=== PATIENT | male | born 1940 | race Caucasian/White ===

== ENCOUNTER 2017-01-21 05:34 | Outpatient (CLI) | payer MEDICARE ==
[~2017-01-21] VITALS: Ht 182.9 cm; Wt 102.1 kg
[~2017-01-21 05:34] MED LIST: ASPI325T32 PO; ATRV10T PO; CHOL2000 PO; HYDR1TAB PO; HYDROCHLOROTHIAZIDE PO; IBUP-30 PO; MTP25TSR PO; MULT-963 PO; OMG1KC PO; TERA5CAP10 PO; TRIA1TAB3 PO; TRIAMTERENE PO
[2017-01-21] MEDS ORDERED: AMLO10TA2 PO (16:21)
[2017-01-21] MEDS ORDERED: ATOR20TA66 PO (16:21)
[2017-01-21] MEDS ORDERED: LISI40TA PO (16:21)
[2017-01-21] MEDS ORDERED: CLON0.1T PO (16:21)
[2017-01-23] MEDS ORDERED: OMEP20CA12 PO (10:23)
== END 2017-01-21 16:24 ==
LOC: PREOP 05:34
PROVIDERS: ATTEND Internal Medicine
DX: Z01.818 Encounter for other preprocedural examination (principal); K92.1 Melena; D50.0 Iron deficiency anemia secondary to blood loss (chronic)

== ENCOUNTER 2017-01-23 07:32 | Day surgery (SDC) | payer MEDICARE ==
--- NOTE | 2017-01-19 21:46 | HISTORY AND PHYSICAL ---
DATE OF SERVICE: 01/23/2017 HISTORY OF PRESENT ILLNESS: The patient is a 76-year-old white male referred by Dr. Zee for diagnostic panendoscopy. He reports, 10 days ago, noting the onset of several large black stools, slightly loose and tarry. He had no diarrhea with this but had daily melena for 3 days with some mild lethargy. He denied any associated abdominal pain, bright red blood per rectum, abdominal distention or weight loss. He underwent colonoscopy last in 2007 at which time no symptoms were noted. He has no known past history of peptic ulcer disease. He was taking one-half of a 325 mg aspirin tablet daily for primary prevention. He had also taken 3 ibuprofen the day prior to the onset of his melena. He has not been taking any nonsteroid medication since. He reports that his appetite has been fair and that he has always had difficulty with weight loss. PAST MEDICAL HISTORY: Significant for hypertension and hyperlipidemia. MEDICATIONS ON ADMISSION: Include lisinopril 20 mg daily, atorvastatin 20 mg daily, hydrocodone 5/325 p.r.n., triamterene/hydrochlorothiazide 1 daily, fish oil 1200 mg capsules 2 daily, aspirin (one-half) 325 mg tablet up until the onset of melena, multivitamin and 2000 units of vitamin D daily. FAMILY HISTORY: Father had history of kidney disease, non-GI tract cancer and hyperlipidemia. Mother also has history of cancer (unknown primary) and dementia. PAST SURGICAL HISTORY: Significant for open heart surgery in 2011. SOCIAL HISTORY: The patient denies any smoking history with only occasional social alcohol intake. He is retired. PHYSICAL EXAMINATION: GENERAL APPEARANCE: Revealed a slightly overweight, white male in no acute distress. VITAL SIGNS: Blood pressure was 110/43 with a heart rate of 80 and regular. SKIN: Revealed no evident of pallor. HEENT: Oral cavity is clear. NECK: Revealed no JVD, adenopathy or bruits. CHEST: Clear. CARDIOVASCULAR: Revealed a regular rate and rhythm without murmur, S3 or S4. CHEST WALL: Midline sternotomy scar is noted. ABDOMEN: Soft, supple, without mass, organomegaly or tenderness. EXTREMITIES: Revealed no cyanosis, clubbing or edema. ASSESSMENT: The patient was set up for diagnostic panendoscopy due to history of melena and associated mild anemia. CBC revealed hemoglobin 1 week ago of 13.4 with a normal MCV. RDW was slightly elevated at 15.6. White count was elevated at 13.8 thousand with left shift and platelet count was 153,000. Preop instructions with split dose Colyte were given. All questions were answered. He was offered an appointment for colonoscopy in 48 hours but he stated that he was not going to be able to make that date and scheduled for the following week on 01/23/2017. Thank you for the referral of this pleasant gentleman. Job ID: [id number] DocumentID: [id number] Dictated Date: 01/14/2017 21:02:38 Tool Machine Set Up Operator Date: 01/14/2017 22:24:06 Dictated By: SHARON SIDHU MD
[~2017-01-23] VITALS: Ht 182.9 cm; Wt 102.1 kg
[~2017-01-23 07:32] MED LIST changes: +AMLO10TA2 PO; +ATOR20TA66 PO; +CLON0.1T PO; +LISI40TA PO
[2017-01-23] MEDS ORDERED: 1/2 NS IV SOLUTION 1,000 ML IV STA (07:42)
[2017-01-23] MEDS ORDERED: NALOXONE 0.4 MG/ML 1 ML (NARCAN) VIAL IVP PRN (07:45)
[2017-01-23] MEDS ORDERED: LIDOCAINE JELLY 2% (XYLOCAINE) 5 ML TUBE MM PRN (07:45)
[2017-01-23] MEDS ORDERED: HURRICAINE EXT TUBE (BENZOCAINE) XX PRN (07:45)
[2017-01-23] MEDS ORDERED: FLUMAZENIL (ROMAZICON) 0.1 MG/ML 5 ML VIAL INJ PRN (07:45)
--- NOTE | 2017-01-23 07:51 | Pre-Op Note & Conscious Sedat ---
Pre-Operative Progress Note H&P Reviewed The H&P was reviewed, patient examined and no changes noted. Date H&P Reviewed: January 23, 2017 Time H&P Reviewed: 07:50 Conscious Sedation Pre-Proced ASA Class: 2 Airway Mallampati Classification: ([place] appropriate class) I. II. III, IV Lungs Heart ASA score ASA 1: a normal healthy patient ASA 2: a patient with a mild systemic disease (mid diabetes, controlled hypertension, obesity ASA 3: a patient with a severe systemic disease that limits activity (angina , COPD, prior Myocardial infarction) ASA 4: a patient with an incapacitating disease that is a constant threat to life (CHF, renal failure) ASA 5: a moribund patient not expected to survive 24 hrs. (ruptured aneurysm) ASA 6: a declared brain patient whose organs are being harvested. For emergent operations, add the letter E after the classification Grade 3 Sedation Plan: Analgesia, Amnesia, Plan communicated to team members, Discussed options with patient/fam, Discussed risks with patient/fam Note The patient is an appropriate candidate to undergo the planned procedure, sedation, and anesthesia. The patient immediately re-assessed prior to indication. SHARON SIDHU MD January 23, 2017 07:51
[2017-01-23 07:58] VITALS: BP 142/80
[2017-01-23] MEDS ORDERED: fentaNYL INJECTION 100 MCG/2 ML AMP ONE ×2 (08:28→09:17)
[2017-01-23] MEDS ORDERED: HURRICAINE EXT TUBE (BENZOCAINE) ONE (08:29)
[2017-01-23] MEDS ORDERED: LIDOCAINE JELLY 2% (XYLOCAINE) 5 ML TUBE ONE (08:29)
[2017-01-23] MEDS ORDERED: MIDAZOLAM 2 MG/2 ML (VERSED) VIAL ONE ×3 (08:29)
[2017-01-23] MEDS: fentaNYL INJECTION 100 MCG/2 ML AMP IVP PRN ×2 (08:32→08:35)
[2017-01-23] MEDS: MIDAZOLAM 2 MG/2 ML (VERSED) VIAL IVP PRN ×3 (08:34→09:18)
[2017-01-23 09:50] VITALS: BP 90/56
[2017-01-23] MEDS ORDERED: OMEP20CA12 PO (10:23)
[2017-01-23 10:25] VITALS: BP 125/78
[2017-01-23 10:34] VITALS: BP 125/78
--- NOTE | 2017-01-23 14:55 | OPERATIVE REPORT ---
DATE OF SERVICE: [facility] SUMMARY INDICATION FOR PROCEDURE: [facility] endoscopy is performed for evaluation of GI bleed with secondary anemia. The patient was placed in the lithotomy position. Prior to doing colonoscopy, digital rectal evaluation was performed. There was no evidence for internal rectal hemorrhoids on digital evaluation. The patient does have a prominent perianal skin fold . Anal sphincter tone was normal. The perianal reflex was intact. The prostate is either quite small or absent. No nodules are noted. No other abnormalities were noted on digital inspection of anal canal or distal rectal vault. The colonoscope was then inserted into the rectum and under direct visualization advanced to the cecum. The cecum was identified by identification of the ileocecal valve and cecal strap. FINDINGS: Several small sigmoid diverticulum were present with no evidence for diverticulitis. The descending colon, transverse colon, ascending colon and cecum were unremarkable. ASSESSMENT: Two small sigmoid diverticulum were present with an otherwise normal colonoscopy to the cecum. The patient either has a very small or congenitally absent prostate on digital inspection as he reports no past history of surgery or radiation therapy. We then proceeded with an EGD. The endoscope was inserted in the oral cavity and under direct visualization the esophagus was intubated. The instrument was passed down the esophagus, through the stomach to the second portion of the duodenum. Careful inspection was made as the endoscope was withdrawn. The patient tolerated the procedure well. FINDINGS: Proximal and mid esophagus were unremarkable. One benign appearing ulcer was noted at the Z-line with erythema and another shallow erosion was present compatible with LA Grade B erosive esophagitis. There was no visible evidence to suggest underlying malignancy or Chew's change. The biopsy was obtained from the ulcer and submitted for histopathology. A small sliding hiatal hernia was present. The cardia and fundus of the stomach are unremarkable. Antral erythema was present without evidence for erosion or ulceration. A biopsy was obtained and submitted for Helicobacter. The pylorus, pyloric channel, duodenal bulb and second portion of the duodenum were unremarkable. ASSESSMENT; LA Grade B erosive esophagitis was present. Biopsy was obtained and submitted for histopathology. Suspect that this is the likely source of this patient 's melena. He does not report heartburn compatible with an insensate esophagus or nighttime symptoms that he sleeps through. We did call out 30 days worth of omeprazole 20 mg to take at least a 1/2 hour before breakfast and he was advised to stay off aspirin. Considering this is for primary prevention, risks may outweigh future benefits of aspirin therapy. Considering that he does not have reflux symptoms and has had a significant GI bleed, would consider indefinite use of PPI therapy, especially if low dose aspirin is going to be resumed in the future. He was advised to continue to avoid nonsteroidal medication. I thank you for the referral of this pleasant gentleman. Job ID: [id number] DocumentID: [id number] Dictated Date: 01/23/2017 11:33:32 Job Recruiter Date: 01/23/2017 14:55:08 Dictated By: SHARON SIDHU MD MTDD
== END 2017-01-23 10:45 | disposition home or self-care (01) ==
LOC: ENDO 07:32
PROVIDERS: ATTEND Internal Medicine
DX: K92.1 Melena (principal); D64.9 Anemia, unspecified; K57.30 Diverticulosis of large intestine without perforation or abscess without bleeding; K22.10 Ulcer of esophagus without bleeding; K44.9 Diaphragmatic hernia without obstruction or gangrene; I10 Essential (primary) hypertension; E78.5 Hyperlipidemia, unspecified; Z79.899 Other long term (current) drug therapy

== ENCOUNTER → 2017-05-14 | Outpatient (CLI) | payer MEDICARE ==
[~2017-05-14] MED LIST changes: +OMEP20CA12 PO
--- NOTE | 2017-05-14 12:26 | Diagnostic Imaging Report ---
INDICATION: Left hip pain. COMPARISON: None. FINDINGS: 2 dedicated radiographic views of the left hip were obtained. There is no fracture, dislocation, bone destruction, or radiopaque foreign body. The visualized pelvic osseous structures and the SI joints demonstrate no acute fracture or dislocation. There is no bone destruction or radiopaque foreign body. The surrounding soft tissue structures are unremarkable. IMPRESSION: 1. Unremarkable radiographic exam of the left hip. Dictated by: Dictated on workstation # [id number]
--- NOTE | 2017-05-14 12:33 | Diagnostic Imaging Report ---
INDICATION: Left knee pain. COMPARISON: None FINDINGS: 3 radiographic views of the left knee were obtained. There is no evidence of acute fracture or dislocation. Osseous structures are intact. There are osteoarthritic changes consisting primarily of the medial tibiofemoral compartment joint space narrowing with sclerotic change of the adjacent articulating surfaces. Otherwise, joint spaces are preserved. There is no large joint effusion. No unexpected radiopaque foreign bodies are seen. IMPRESSION: 1. No radiographic evidence of acute fracture or dislocation of left knee. 2. 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 Dictated by: Dictated on workstation # [id number]
== END ==
LOC: RAD 11:31
PROVIDERS: ATTEND Family Medicine
DX: M17.12 Unilateral primary osteoarthritis, left knee (principal); M25.552 Pain in left hip
CPT/HCPCS: 73502; 73562

== ENCOUNTER → 2018-07-06 | Outpatient (CLI) | payer MEDICARE ==
[~2018-07-06] MED LIST changes: -AMLO10TA2 PO; +AMLO10TA6 PO
[2018-07-06 08:28] LABS: CREATININE SERUM 1.66 MG/DL (0.60-1.30)
== END ==
LOC: LAB 08:00
PROVIDERS: ATTEND Internal Medicine Cardiovascular Disease
DX: I65.23 Occlusion and stenosis of bilateral carotid arteries (principal)
CPT/HCPCS: 36415; 82565; 84520

== ENCOUNTER → 2018-07-09 | Outpatient (CLI) | payer MEDICARE ==
[~2018-07-09] MED LIST changes: +IOHEXOL 350 MG/ML 100 ML (OMNIPAQUE 350) VIAL IV ONE; +NS 250 ML (IVPB) BAG IV ONE; +RECEIVED CONTRAST (Hold Metformin) IV SCH
[2018-07-09 08:56] LABS: CREATININE SERUM 1.45 MG/DL (0.60-1.30)
--- NOTE | 2018-07-09 11:39 | Diagnostic Imaging Report ---
INDICATION: Carotid artery stenosis. COMPARISON: 04/23/2016 TECHNIQUE: Routine postcontrast CTA of the neck was performed. Contrast was administered intravenously. Multiplanar and 3-D reformats were also created and reviewed. FINDINGS: Included portions of the aortic arch show mild calcified aortic atherosclerosis. There is mild calcified atherosclerosis at the origin of the right brachiocephalic and common carotid arteries. The origins of the major arch vessels are otherwise widely patent. Bilateral common carotid arteries are mildly tortuous, but are patent as well. There is no focal hemodynamically significant stenosis of the common carotid arteries on either side. There is mild calcified atherosclerosis of the left carotid bulb and origin of the left internal carotid artery. There is however no focal hemodynamically significant stenosis of the left internal carotid artery. There is no evidence of dissection. On the right however, there is large eccentric calcified plaque at the origin of the right internal carotid artery. This results in approximate 65% stenosis of the proximal right internal carotid artery. Within the posterior circulation, the left vertebral artery appears to be slightly dominant. There is moderate image degradation of the proximal portions of the bilateral vertebral arteries secondary to beam hardening artifact. There are bulky calcifications of the origins of bilateral vertebral arteries, but otherwise, the vertebral arteries are widely patent without evidence of focal stenosis. Bony structures show age-related degenerative changes. No acute osseous abnormalities are seen. Surrounding pre-and paravertebral soft tissue structures are unremarkable as well. Included portions of the lung apices are within normal limits. Included portions of posterior fossa unremarkable as well. 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 Please note, this portion of the intracranial circulation is not occluded on today's exam. IMPRESSION: 1. 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 2. Otherwise, mild scattered calcified atherosclerotic disease. 3. Patient's known intracranial arterial aneurysm is not included on today's [id number]. Dictated by: Dictated on workstation # [id number]
== END ==
LOC: RAD 07-06 07:56
PROVIDERS: ATTEND Internal Medicine Cardiovascular Disease
DX: I65.23 Occlusion and stenosis of bilateral carotid arteries (principal)
CPT/HCPCS: 36415; 70498; 82565; 84520

== ENCOUNTER → 2020-07-06 | Outpatient (CLI) | payer MEDICARE ==
[~2020-07-06] MED LIST changes: +AMLO-251 PO; -AMLO10TA6 PO; +CLN.1T PO; -CLON0.1T PO; -IOHEXOL 350 MG/ML 100 ML (OMNIPAQUE 350) VIAL IV ONE; -NS 250 ML (IVPB) BAG IV ONE; -OMEP20CA12 PO; +OMEP20CA18 PO; -RECEIVED CONTRAST (Hold Metformin) IV SCH
== END ==
LOC: CARD 10:56
PROVIDERS: ATTEND Physician Assistant
DX: I51.7 Cardiomegaly (principal); I25.10 Atherosclerotic heart disease of native coronary artery without angina pectoris; I65.29 Occlusion and stenosis of unspecified carotid artery; E78.5 Hyperlipidemia, unspecified
CPT/HCPCS: 93306

== ENCOUNTER → 2020-07-16 | Outpatient (CLI) | payer MEDICARE ==
[~2020-07-16] VITALS: Ht 182 cm; Wt 104.0 kg
[~2020-07-16] MED LIST changes: +REGADENOSON 0.4 MG/5 ML SYR (LEXISCAN) IV ONE
[2020-07-16] MEDS: CATHETER FLUSH 10 ML SYR IV PRN ×2 (08:20→09:10)
[2020-07-16 09:09] VITALS: BP 120/71
--- NOTE | 2020-07-17 08:28 | Cardiology Stress Test Report ---
Stress Test Report Date of Procedure/Referring: Date of Procedure: Jul 17, 2020 PCP Lexie Ireland Admitting Physician Carl Da Silva MD Indications: Coronary artery disease Baseline Heart Rate: 75 Baseline Blood Pressure: Blood Pressure Systolic: 120 Blood Pressure Diastolic: 71 Baseline Vitals Vital Signs Date Time Temp Pulse Resp B/P (MAP) Pulse Ox O2 Delivery O2 Flow Rate FiO2 07/16/20 09:09 78 14 120/71 (87) 97 Room Air Baseline EKG: Baseline EKG: normal sinus rhythm Summary After explaining the procedure to the patient, he signed a consent and then brought to the stress nuclear laboratory. Patient received 0.4 mg Lexiscan for stress test, ECG, heart rate and blood pressure were monitored continuously. Resting and stress dose of radio tracer were injected, imaging was acquired and reviewed in short axis, horizontal long axis and vertical long axis views. TID: 1.13 SSS: 3 SDS: 2 EF: 47 1. Patient tolerated Lexiscan well 2. Mild decreased uptake involving the anterior wall and anterior apex with mild reversibility 3. Normal left ventricular size, EF 47 percent SHERI HERNDON MD Jul 17, 2020 08:28
== END ==
LOC: CARD 08:30
PROVIDERS: ATTEND Physician Assistant
DX: I25.10 Atherosclerotic heart disease of native coronary artery without angina pectoris (principal); I65.23 Occlusion and stenosis of bilateral carotid arteries; E78.2 Mixed hyperlipidemia
CPT/HCPCS: 78452; 93017; A9502

== ENCOUNTER → 2022-01-08 | Outpatient (CLI) | payer MEDICARE ==
[~2022-01-08] MED LIST changes: -LISI40TA PO; +LISI40TA9 PO; -REGADENOSON 0.4 MG/5 ML SYR (LEXISCAN) IV ONE
== END ==
LOC: CARD 15:00
PROVIDERS: ATTEND Internal Medicine Cardiovascular Disease
DX: I35.1 Nonrheumatic aortic (valve) insufficiency (principal); I10 Essential (primary) hypertension
CPT/HCPCS: 93306

== ENCOUNTER → 2022-02-10 | Outpatient (CLI) | payer MEDICARE ==
[~2022-02-10] MED LIST changes: +CATHETER FLUSH 10 ML SYR IVP PRN
[2022-02-10 09:43] VITALS: BP 130/72
--- NOTE | 2022-02-10 11:42 | Cardiology Stress Test Report ---
Stress Test Report Date of Procedure/Referring: Date of Procedure: Feb 10, 2022 PCP Carl Ardon MD Admitting Physician Admitting Physician: Attending Physician: Sindhu Serrano MD Indications: HTN Baseline Heart Rate: 73 Baseline Blood Pressure: Blood Pressure Systolic: 130 Blood Pressure Diastolic: 72 Vital Signs Date Time Temp Pulse Resp B/P (MAP) Pulse Ox O2 Delivery O2 Flow Rate FiO2 02/10/22 09:43 73 130/72 (91) Baseline Vital Signs Vital Signs Date Time Temp Pulse Resp B/P (MAP) Pulse Ox O2 Delivery O2 Flow Rate FiO2 02/10/22 09:43 73 130/72 (91) Baseline EKG: Baseline EKG: NSR Summary: After explaining the procedure and details to the patient, he signed the consent and was brought to the stress nuclear laboratory. Patient exercised on standard Matthew protocol, EKG, heart rate and blood pressure were monitored continuously, resting and stress doses of radio tracer were injected, imaging was acquired and reviewed in the short axis, horizontal long axis and vertical long axis views Patient was able to exercise for a total of 2.30 minutes on Matthew protocol, METs 4 Maximum heart rate 148 Maximum blood pressure 176/85 Stress EKG, Minimal nondiagnostic changes Recovery EKG, Return to baseline TID: 1.09 SSS: 4 SDS: 4 EF: 51 Conclusion: 1. Poor exercise tolerance for a total of 2 minutes 30 seconds on standard Matthew protocol 4 METS achieving 100% of maximal expected heart rate 2. Appropriate heart rate response to exercise with hypertensive response to exercise peak blood pressure 176/85 return to baseline during recovery 3. Diaphragmatic attenuation with mild decrease uptake at the inferoapical segment with mild reversibility. No significant ischemia or infarction on SPECT images 4. Normal left ventricular size, ejection fraction 51% Copy Copies To 1: CARL ARDON MD, BASHAR J MD Feb 10, 2022 11:42
== END ==
LOC: CARD 08:04
PROVIDERS: ATTEND Internal Medicine Cardiovascular Disease
DX: I10 Essential (primary) hypertension (principal)
CPT/HCPCS: 78452; 93017; A9502

== ENCOUNTER 2023-04-19 20:00 | Emergency (ER) | payer MEDICARE ==
[~2023-04-19] VITALS: Ht 182 cm; Wt 99.7 kg
[~2023-04-19 20:00] MED LIST changes: -CATHETER FLUSH 10 ML SYR IVP PRN
[2023-04-19] MEDS ORDERED: LACTATED RINGERS 1,000 ML IV ONE (20:45)
[2023-04-19 20:54] LABS: BASOPHILS % (AUTO) 0 % (0-10); EOSINOPHILS # (AUTO) 0.2 10^3/uL (0.0-0.3); EOSINOPHILS % (AUTO) 2 % (0-10); HEMATOCRIT 48 % (40-54); HEMOGLOBIN 15.6 g/dL (13.3-17.7); LYMPHOCYTES # (AUTO) 1.2 10^3/uL (1.0-4.0); LYMPHOCYTES % (AUTO) 9 % (12-44); MEAN CORPUSCULAR HEMOGLOBIN 31 pg (25-34); MEAN CORPUSCULAR HGB CONC 33 g/dL (32-36); MEAN CORPUSCULAR VOLUME 95 fL (80-99); MEAN PLATELET VOLUME 10.8 fL (9.0-12.2); MONOCYTES # (AUTO) 1.1 10^3/uL (0.0-1.0); MONOCYTES % (AUTO) 8 % (0-12); NEUTROPHILS % (AUTO) 81 % (42-75); PLATELET COUNT 213 10^3/uL (130-400); WHITE BLOOD COUNT 13.6 10^3/uL (4.3-11.0)
--- NOTE | 2023-04-19 20:56 | ED General ---
General Chief Complaint: General Problems/Pain Stated Complaint: NAUSEA/DIZZINESS Source of Information: Patient Exam Limitations: No Limitations History of Present Illness Date Seen by Provider: Apr 19, 2023 Time Seen by Provider: 20:53 Initial Comments Patient is a 83-year-old male who presents ED with son for dizziness and nausea. 2-1/2 hours ago patient was sitting at home watching golf. Started feeling dizzy and nauseous. Patient reports feeling "woozy" at the time. Patient states he felt like he could not stand up at the time. Patient was able to stand and walk and felt like it was normal baseline but did feel nauseous. those symptoms have slightly improved. Patient states he has been yawning since then. He had no chest pain or shortness of breath during this episode. Today he spent working outside in the heat. States he has been drinking fluids. According to his son thought may be some right-sided facial droop but there is no obvious droop on arrival. Patient is currently asymptomatic besides feeling slightly nauseous. Patient denies of any unilateral weakness, sensory changes, visual changes, chest pain, cough, shortness of breath. History of cerebral aneurysms stable. Not on blood thinners Allergies and Home Medications Allergies Coded Allergies: No Known Drug Allergies (Unverified , 09/27/12) Patient Home Medication List Home Medication List Reviewed: Yes Amlodipine Besylate (Amlodipine Besylate) 10 Mg Tablet, 10 MG PO HS, (Reported) Entered as Reported by: KATINA PEARCE on 01/21/17 1621 Atorvastatin Calcium (Atorvastatin Calcium) 20 Mg Tablet, 20 MG PO HS, (Reported) Entered as Reported by: KATINA PEARCE on 01/21/17 162 Cholecalciferol (Vitamin D) 2,000 Unit Capsule, 2,000 UNIT PO DAILY, (Reported) Entered as Reported by: PAXTON DOWNS on 07/07/12 0926 Clonidine HCl (Clonidine HCl) 0.1 Mg Tablet, 0.1 MG PO BID, (Reported) Entered as Reported by: KATINA PEARCE on 01/21/17 1621 Hydrocodone Bit/Acetaminophen (Vicodin 5-500 Tablet) 1 Each Tablet, 1-2 EACH PO Q4HR PRN, (Reported) Entered as Reported by: ASHELY BARRIENTOS on 09/30/12 1855 Lisinopril (Lisinopril) 40 Mg Tablet, 40 MG PO DAILY, (Reported) Entered as Reported by: KATINA PEARCE on 01/21/17 1621 Multivitamin (Multi-Vitamin Daily) 1 Each Tablet, 1 EACH PO DAILY, (Reported) Entered as Reported by: PAXTON DOWNS on 07/07/12 0926 [place] 3 Polyunsat Fatty Acids (Fish Oil) 1,000 Mg Cap, 1,000 MG PO HS, (Reported) Entered as Reported by: PAXTON DOWNS on 07/07/12 0926 Omeprazole (Omeprazole) 20 Mg Capsule.dr, 20 MG PO DAILY Prescribed by: SHARON SIDHU on 01/23/17 1023 Triamterene/Hydrochlorothiazid (Triamterene-Hctz 37.5-25 Mg Tb) 1 Each Tablet, 1 EACH PO DAILY, (Reported) Entered as Reported by: KATINA PEARCE on 09/27/12 0946 Review of Systems Review of Systems Constitutional: No chills, No diaphoresis, No fever, No malaise, No weakness EENTM: No hearing loss, No ear pain, No blurred vision Respiratory: No cough, No dyspnea on exertion Cardiovascular: No chest pain Gastrointestinal: No abdominal pain, No diarrhea; nausea; No vomiting Genitourinary: No decreased output, No discharge Musculoskeletal: No back pain, No joint pain Skin: No change in color, No change in hair/nails All Other Systems Reviewed Negative Unless Noted: Yes Past Rokhfty-Qrveck-Gfhfrz Hx Seasonal Allergies Seasonal Allergies: No Past Medical History Coronary Artery Disease, Hypertension Gastrointestinal Bleed Physical Exam Vital Signs Vital Signs - First Documented 04/19/23 20:23 Temp 36.4 Pulse 70 Resp 13 B/P (MAP) 132/76 (94) Pulse Ox 98 O2 Delivery Room Air Capillary Refill : Height, Weight, BMI Height: 6'0.00" Weight: 225lbs. 0.0oz. [id number]; 31.39 BMI Method: General Appearance: No Apparent Distress, WD/WN Eyes: Bilateral Eye Normal Inspection, Bilateral Eye PERRL, Bilateral Eye EOMI HEENT: PERRL/EOMI, TMs Normal, Normal ENT Inspection, Pharynx Normal Neck: Full Range of Motion, Normal Inspection, Non Tender, Supple Respiratory: Chest Non Tender, Lungs Clear, Normal Breath Sounds, No Accessory Muscle Use, No Respiratory Distress Cardiovascular: Regular Rate, Rhythm, No Edema, No Gallop, No JVD Gastrointestinal: Normal Bowel Sounds, No Organomegaly, No Pulsatile Mass, Non Tender Extremity: Normal Capillary Refill, Normal Inspection, Normal Range of Motion, Non Tender Neurologic/Psychiatric: Alert, Oriented x3, No Motor/Sensory Deficits Skin: Normal Color, Warm/Dry Progress/Results/Core Measures Suspected Sepsis SIRS Temperature: Pulse: Respiratory Rate: Laboratory Tests 04/19/23 20:35: White Blood Count 13.6H Blood Pressure / Mean: Laboratory Tests 04/19/23 20:35: Creatinine 1.63H, INR Comment 0.9, Platelet Count 213, Total Bilirubin 0.7 Results/Orders Lab Results Laboratory Tests Test 04/19/23 20:35 04/19/23 21:38 04/19/23 22:00 Range/Units White Blood Count 13.6 H 4.3-11.0 10^3/uL Red Blood Count 5.07 4.30-5.52 10^6/uL Hemoglobin 15.6 13.3-17.7 g/dL Hematocrit 48 40-54 % Mean Corpuscular Volume 95 80-99 fL Mean Corpuscular Hemoglobin 31 25-34 pg Mean Corpuscular Hemoglobin Concent 33 32-36 g/dL Red Cell Distribution Width 15.4 H 10.0-14.5 % Platelet Count 213 130-400 10^3/uL Mean Platelet Volume 10.8 9.0-12.2 fL Immature Granulocyte % (Auto) 1 % Neutrophils (%) (Auto) 81 H 42-75 % Lymphocytes (%) (Auto) 9 L 12-44 % Monocytes (%) (Auto) 8 0-12 % Eosinophils (%) (Auto) 2 0-10 % Basophils (%) (Auto) 0 0-10 % Neutrophils # (Auto) 11.0 H 1.8-7.8 10^3/uL Lymphocytes # (Auto) 1.2 1.0-4.0 10^3/uL Monocytes # (Auto) 1.1 H 0.0-1.0 10^3/uL Eosinophils # (Auto) 0.2 0.0-0.3 10^3/uL Basophils # (Auto) 0.0 0.0-0.1 10^3/uL Immature Granulocyte # (Auto) 0.1 0.0-0.1 10^3/uL Prothrombin Time 12.6 12.2-14.7 SEC INR Comment 0.9 0.8-1.4 Activated Partial Thromboplast Time 29 24-35 SEC Sodium Level 139 135-145 MMOL/L Potassium Level 3.8 3.6-5.0 MMOL/L Chloride Level 108 H 98-107 MMOL/L Carbon Dioxide Level 20 L 21-32 MMOL/L Anion Gap 11 5-14 MMOL/L Blood Urea Nitrogen 24 H 7-18 MG/DL Creatinine 1.63 H 0.60-1.30 MG/DL Estimat Glomerular Filtration Rate 42 BUN/Creatinine Ratio 15 Glucose Level 111 H 70-105 MG/DL Calcium Level 9.0 8.5-10.1 MG/DL Corrected Calcium 9.0 8.5-10.1 MG/DL Magnesium Level 2.4 1.6-2.4 MG/DL Total Bilirubin 0.7 0.1-1.0 MG/DL Aspartate Amino Transf (AST/SGOT) 31 5-34 U/L Alanine Aminotransferase (ALT/SGPT) 25 0-55 U/L Alkaline Phosphatase 110 40-136 U/L Total Creatine Kinase 244 H 30-200 U/L Creatine Kinase MB 4.1 <6.6 NG/ML Myoglobin 90.6 10.0-92.0 NG/ML Troponin I < 0.028 <0.028 NG/ML Total Protein 7.2 6.4-8.2 GM/DL Albumin 4.0 3.2-4.5 GM/DL TSH [place] Testing 1.56 0.35-4.94 UIU/ML Serum Alcohol < 10 <10 MG/DL Influenza Type A (RT-PCR) Not Detected Not Detecte Influenza Type B (RT-PCR) Not Detected Not Detecte SARS-CoV-2 RNA (RT-PCR) Not Detected Not Detecte Urine Color YELLOW Urine Clarity CLEAR Urine pH 7.0 5-9 Urine Specific [place] 1.015 L 1.016-1.022 Urine Protein NEGATIVE NEGATIVE Urine Glucose (UA) NEGATIVE NEGATIVE Urine Ketones NEGATIVE NEGATIVE Urine Nitrite NEGATIVE NEGATIVE Urine Bilirubin NEGATIVE NEGATIVE Urine Urobilinogen 4.0 < = 1.0 MG/DL Urine Leukocyte Esterase NEGATIVE NEGATIVE Urine RBC (Auto) 2+ H NEGATIVE Urine RBC 5-10 H /HPF Urine WBC NONE /HPF Urine Crystals PRESENT H /LPF Urine Amorphous Sediment FEW JOSHUA PHOSPHATE H /LPF Urine Bacteria NEGATIVE /HPF Urine Casts NONE /LPF Urine Mucus SMALL H /LPF Urine Culture Indicated NO Medications Given in ED Vital Signs/I&O 04/19/23 04/19/23 20:23 22:50 Temp 36.4 Pulse 70 68 Resp 13 18 B/P (MAP) 132/76 (94) 110/74 Pulse Ox 98 97 O2 Delivery Room Air Room Air Capillary Refill : ECG Comment Sinus rhythm, 69 bpm, QRS duration 100 MS, QTc 432 MS Departure Communication (PCP) Patient on arrival no acute distress. Hemodynamically stable. NIH performed 0. States 2-1/2 hours ago he was sitting at home felt dizzy and nauseous while s etting. This lasted for 20 minutes. States he does feel a little nauseous on arrival. Due to his complaint CT scan of the head generalized lab work, EKG, COVID influenza with urinalysis was ordered. CBC showed slight elevated white blood count at 13. His afebrile. History of chronic kidney disease. BUN of 24, creatinine 1.63, GFR 42. Baseline kidney function.. Blood sugar 111. Normal troponin. Slight elevated CPK of 244. Patient did receive a liter of LR. CT scan of the head did not note any acute abnormality. History of brain aneurysm according to son and patient at bedside. Not on blood thinners. No neurological red flag findings at this time. Patient was able to urinate which did not note any infection but did note hematuria +2, red blood cells 5-10. Has no abdominal pain or flank pain. I recommend recheck with urinalysis with your PCP. Further evaluation may be needed. COVID influenza was negative. Patient was not orthostatic hypotensive. After the fluid he states he felt better. Did not require any nausea medication. His EKG showed normal sinus rhythm with normal cardiac work-up. Chest x-ray was negative for pneumonia. No obvious source of infection suggesting the slight elevated white blood count. Likely more reactive. He states he has been working outside in the heat for the past few weeks. Concerned that patient is slightly dehydrated. Did have a slight increase in his CK. Since patient's symptoms are improving, I had patient's stand up to walk around and he noted no acute dizziness or the feeling of nausea. States he was yawning at the time but did yawn a few times here but that has improved as well. Discussed with family that next test would be a CT angio head and neck to rule out large vessel occlusion. Since patient is asymptomatic they did not want to proceed at this time. Discussed with family recommend staying hydrated. I do think it would be reasonable to follow-up with his primary care physician in the next few days for reevaluation. If any worsening symptoms such as unilateral weakness, sensory changes, facial droop, head pain, dizziness to return back to ED. They agree with this plan of action. Impression Primary Impression: Dizziness Additional Impression: Dehydration Disposition: HOME, SELF-CARE Condition: Stable Departure-Patient Inst. Decision time for Depature: 22:35 Referrals: YUNIEL ARDON MD (PCP/Family) Primary Care Physician Patient Instructions: Dehydration, Adult (DC) Add. Discharge Instructions: I advise make sure you are drinking plenty of fluids and rest and and eating throughout the day especially out in the heat. Follow-up with your primary care physician earlier this week for reevaluation. If any worsening symptoms such as severe dizziness, vomiting, headache, unilateral weakness or sensory changes to return back to ED All discharge instructions reviewed with patient and/or family. Voiced understanding. BRITTANEY ELIZABETH Apr 19, 2023 20:56
[2023-04-19 20:58] LABS: INR 0.9 (0.8-1.4); PROTHROMBIN TIME PATIENT 12.6 SEC (12.2-14.7)
[2023-04-19 21:06] LABS: ALANINE AMINOTRANSFERASE 25 U/L (0-55); ALKALINE PHOSPHATASE 110 U/L (40-136); BILIRUBIN,TOTAL 0.7 MG/DL (0.1-1.0); BUN/CREATININE RATIO 15; CARBON DIOXIDE 20 MMOL/L (21-32); CHLORIDE 108 MMOL/L (98-107); CREATINE KINASE 244 U/L (30-200); CREATININE SERUM 1.63 MG/DL (0.60-1.30); GFR ESTIMATED 42; GLUCOSE 111 MG/DL (70-105); MAGNESIUM 2.4 MG/DL (1.6-2.4); POTASSIUM 3.8 MMOL/L (3.6-5.0); SODIUM 139 MMOL/L (135-145); TOTAL PROTEIN 7.2 GM/DL (6.4-8.2)
--- NOTE | 2023-04-19 21:12 | Diagnostic Imaging Report ---
PROCEDURE: CT head wo r/o stroke. TECHNIQUE: Multiple contiguous axial images were obtained through the brain without the use of intravenous contrast. Auto Exposure Controls were utilized during the CT exam to meet ALARA standards for radiation dose reduction. INDICATION: Stroke. Neurologic deficit. History of aneurysms. Dizziness. COMPARISON: None. FINDINGS: Moderate generalized parenchymal volume loss. No intracranial hemorrhage, mass effect, hydrocephalus or extra-axial fluid collections. No CT evidence of territorial infarction. Osseous structures are intact. Paranasal sinuses and mastoids are clear. IMPRESSION: No acute intracranial CT findings. Findings discussed with Dr. Eleanor Phillips at 9:09 PM on 04/19/2023. Dictated by: Dictated on workstation # [id number]
--- NOTE | 2023-04-19 21:18 | Diagnostic Imaging Report ---
EXAM: CHEST 1 VIEW, AP/PA ONLY INDICATION: Weakness. COMPARISON: None. FINDINGS: Sternotomy. Normal heart size and central pulmonary vascularity. No focal pulmonary opacity. No pleural effusion or pneumothorax. No acute osseous findings. IMPRESSION: No acute cardiopulmonary findings. Dictated by: Dictated on workstation # [id number]
[2023-04-19 21:27] LABS: CREATINE KINASE MB 4.1 NG/ML (<6.6); TSH (THYROID ANALYZER) 1.56 UIU/ML (0.35-4.94)
[2023-04-19 22:21] LABS: AMORPHOUS SEDIMENT,UR FEW AMOR PHOSPHATE /LPF; BACTERIA,URINE NEGATIVE /HPF; BILIRUBIN,URINE NEGATIVE (NEGATIVE); CLARITY,URINE CLEAR; COLOR,URINE YELLOW; GLUCOSE, URINE (UA) NEGATIVE (NEGATIVE); KETONES,URINE NEGATIVE (NEGATIVE); LEUKOCYTE ESTERASE ,URINE NEGATIVE (NEGATIVE); NITRITE,URINE NEGATIVE (NEGATIVE); PROTEIN,URINE NEGATIVE (NEGATIVE)
[2023-04-19 22:50] VITALS: BP 110/74
== END 2023-04-19 22:50 | disposition home or self-care (01) ==
LOC: EDUNIT# 20:00 → ER 20:02
DX: E86.0 Dehydration (principal); R11.0 Nausea; Z20.822 Contact with and (suspected) exposure to COVID-19
CPT/HCPCS: 70450; 71045; 80053; 81000; 82550; 82553; 83735; 83874; 84443; 84484; 85025; 85610; 85730; 87636; 93005; 93041; 99284; G0480; 36415; 80320